=== PATIENT | female | born 2000 | race African-American/Black ===

== ENCOUNTER 2020-08-03 17:53 | Emergency (ER) | payer MEDICAID ==
[~2020-08-03] VITALS: Ht 157.5 cm; Wt 50.0 kg
[2020-08-03] MEDS ORDERED: ACETAMINOPHEN 325MG TABLET PO ONE (18:30)
[2020-08-03 19:43] LABS: HEMATOCRIT. 43.4 % (36.0-48.0); HEMOGLOBIN. 14.4 g/dL (12.0-16.0); MEAN CORPUSCULAR VOLUME 90.1 fL (81.0-99.0); MEAN PLATELET VOLUME 8.6 fl (7.4-10.4); PLATELET 238 x1000/uL (130-400); RED BLOOD CELL COUNT 4.82 mill/uL (4.2-5.4); RED CELL DISTRIBUTION WIDTH 14.2 % (11.6-14.6)
[2020-08-03 19:46] LABS: CHLORIDE 104 mEq/L (98-107)
[2020-08-03 19:57] LABS: B-HCG QUANTITATIVE < 1 mIU/mL (<3)
[2020-08-03] MEDS ORDERED: KETOROLAC 15MG/ML VIAL IV ONE (20:00)
[2020-08-03] MEDS ORDERED: ONDANSETRON 4MG ODT PO ONE (20:00)
[2020-08-03 20:05] LABS: PLATELET ESTIMATE NORMAL
[2020-08-03 20:25] LABS: CLARITY URINE TURBID (CLEAR); COLOR URINE BLOODY (YELLOW); KETONES URINE 3+ (NEGATIVE); LEUKOCYTE ESTERASE URINE 3+ (NEGATIVE); NITRITE URINE POSITIVE (NEGATIVE); OCCULT BLOOD URINE 3+ (NEGATIVE); PH URINE 7.5 (4.5-8.0); PROTEIN URINE 2+ (NEGATIVE); SPECIFIC GRAVITY URINE 1.027 (1.005-1.030)
[2020-08-03] MEDS ORDERED: OXYCODONE HCL 5MG TABLET PO ONE (21:00)
[2020-08-03 21:42] VITALS: BP 118/62
== END 2020-08-03 21:44 | disposition home or self-care (01) ==
LOC: ER 17:53
DX: N30.90 Cystitis, unspecified without hematuria (principal)
CPT/HCPCS: 36415; 76830; 76856; 80053; 81003; 81025; 84702; 85025; 86850; 86900; 86901; 96374; 99284; J1885; Q0162

== ENCOUNTER 2022-03-30 16:22 | Emergency (ER) | payer MEDICAID, OTHER ==
[~2022-03-30] VITALS: Ht 167.6 cm; Wt 61.0 kg
[2022-03-30 16:23] VITALS: BP 128/88
== END 2022-03-30 17:25 | disposition left against medical advice (07) ==
LOC: ER 16:22
DX: Z53.21 Procedure and treatment not carried out due to patient leaving prior to being seen by health care provider (principal)
CPT/HCPCS: 99283

== ENCOUNTER 2023-09-20 23:15 | Emergency (ER) | payer OTHER ==
[~2023-09-20] VITALS: Ht 167.6 cm; Wt 54.0 kg
[2023-09-20 23:40] VITALS: TEMP 98.3; O2SAT 98
[2023-09-21] MEDS ORDERED: IBUPROFEN 600MG TABLET PO ONE
[2023-09-21 00:16] VITALS: BP 131/77; PULSE 110; RESP 16
== END 2023-09-21 03:30 | disposition home or self-care (01) ==
LOC: ER 23:15
DX: S40.012A Contusion of left shoulder, initial encounter (principal); J45.909 Unspecified asthma, uncomplicated; X58.XXXA Exposure to other specified factors, initial encounter; Y93.89 Activity, other specified; Y92.89 Other specified places as the place of occurrence of the external cause; Y99.8 Other external cause status
CPT/HCPCS: 71045; 73050; 81025; 99284